=== PATIENT | female | born 1955 | race Hispanic/Latino ===

== ENCOUNTER → 2023-12-19 | Day surgery (SDC) | payer OTHER ==
[2023-12-17 13:55] LABS: BASOPHILS % 0.6 % (0.0-1.0); EOSINOPHILS # (AUTO) 0.1 (0.0-0.4); EOSINOPHILS % 1.3 % (0.0-6.0); HEMATOCRIT 35.3 % (34.2-44.1); HEMOGLOBIN 11.4 g/dL (12.0-16.0); LYMPHOCYTES # (AUTO) 2.7 (1.0-3.2); MEAN CORPUSCULAR HGB CONC 32.3 g/dL (31-35); MEAN CORPUSCULAR VOLUME 102.3 fL (81-99); MONOCYTES # (AUTO) 0.4 (0.2-0.8); MONOCYTES % 5.6 % (4.4-11.3); NEUTROPHILS # (AUTO) 3.8 (2.1-6.9); NEUTROPHILS % 54.4 % (38.7-80.0); PLATELET COUNT 212 x10e3/uL (140-360); RED BLOOD COUNT 3.45 x10e6/uL (3.6-5.1); WHITE BLOOD COUNT 6.98 x10e3/uL (4.8-10.8)
[~2023-12-19] MED LIST: AMLODIPINE BESY10 MG PO; FLAXSEED1000 MG PO; LUTEIN-ZEAXANT1 EAC1 PO; MULTI-VITAMIN1 EACH PO; PROPOFOL IV EMULSION 50 ML IV ONE; VIT B12 PO
[2023-12-19] MEDS: LACTATED RINGER'S 1,000 ML ONE (08:11)
[2023-12-19 10:20] VITALS: BP 114/77; PULSE 59; RESP 17; TEMP 97.2; O2SAT 98
== END | disposition home or self-care (01) ==
LOC: OR 07:17 → EDBD 17:00
PROVIDERS: ATTEND Internal Medicine Gastroenterology
DX: Z12.11 Encounter for screening for malignant neoplasm of colon (principal); K63.5 Polyp of colon; K57.30 Diverticulosis of large intestine without perforation or abscess without bleeding; K64.8 Other hemorrhoids; I10 Essential (primary) hypertension; E66.9 Obesity, unspecified; Z01.810 Encounter for preprocedural cardiovascular examination; Z01.812 Encounter for preprocedural laboratory examination; Z79.899 Other long term (current) drug therapy
CPT/HCPCS: 36415; 45385; 85025; 93005; J2704; J7121; 45378; 45380